=== PATIENT | female | born 1965 | race Caucasian/White ===

== ENCOUNTER 2019-03-31 05:36 | Emergency (ER) | payer OTHER ==
[2019-03-31] MEDS ORDERED: TETRACAINE 0.5% HCL 0.6ML DROPPER.BOTTLE OU ONE (06:15)
[2019-03-31] MEDS ORDERED: FLUORESCEIN NA 1 EA STRIP OU ONE (06:15)
[2019-03-31] MEDS ORDERED: ERYTHROMYCIN 0.5% OPHTHALMIC OINTMENT 3.5 GM TUBE OU ONE (06:15)
--- NOTE | 2019-03-31 06:15 | PDOC ---
History of Present Illness - General Chief Complaint: Eye Problem Stated Complaint: L EYE PAIN Time Seen by Provider: 03/31/19 06:11 History Source: Patient - History of Present Illness Initial Comments: 03/31/19 06:37 54 year old female woke up with pain to the left eye pain and tearing as per patient has been rubbing eyes. no vision changes PMHX: migraines; lasik surgery 2017 Past History - Past Medical History Allergies/Adverse Reactions: Allergies Allergy/AdvReac Type Severity Reaction Status Date / Time No Known Allergies Allergy Verified 03/31/19 06:22 Home Medications: Ambulatory Orders Erythromycin 0.5% Eye Ointment [Erythromycin 0.5% Eye Ointment -] 1 applic OS Q6H #2 tube 03/31/19 Review of Systems - Review of Systems Able to Perform ROS?: Yes Is the patient limited Wolof proficient: No Constitutional: No: Symptoms Reported, See HPI, Chills, Diaphoresis, Fever, Loss of Appetite, Malaise, Night Sweats, Weakness, Weight Stable, Unintentional Wgt. Loss, Unexplained wgt Loss, Other HEENTM: Yes: Eye Pain (left eye pain), Tearing. No: Blurred Vision, Double Vision, Cataracts *Physical Exam - Vital Signs 03/31/19 06:40 Last Vital Signs Temp Pulse Resp BP Pulse Ox 97.6 F 65 19 129/65 99 03/31/19 05:45 03/31/19 05:45 03/31/19 05:45 03/31/19 05:45 03/31/19 05:45 - Physical Exam General Appearance: Yes: Appropriately Dressed HEENT: positive: Other (left eye + fluorescein uptake at 6 0'clock position and pupils. PERRLA snellen 20/70 left 20/50 right 20/40 both) Medical Decision Making - Medical Decision Making 03/31/19 06:41 Corneal abrasion P: fluroscein tetracaine erythromycin *DC/Admit/Observation/Transfer Diagnosis at time of Disposition: Left corneal abrasion Qualifiers: Encounter type: initial encounter Qualified Code(s): S05.02XA - Injury of conjunctiva and corneal abrasion without foreign body, left eye, initial encounter - Discharge Dispostion Disposition: HOME - Prescriptions Prescriptions: Erythromycin 0.5% Eye Ointment [Erythromycin 0.5% Eye Ointment -] 1 applic OS Q6H #2 tube - Referrals Referrals: Hermes Prabhakar MD [Staff Physician] - 24 hours (call today) Anamaria Schulz MD [Staff Physician] - 24 hours (call today) Monster Holm MD [Staff Physician] - (call today for an appointment) - Patient Instructions Printed Discharge Instructions: DI for Corneal Abrasion Additional Instructions: apply a thin ribbon to left eye every 6 hours as prescribed. follow up with an eye doctor as soon as possible - Post Discharge Activity
--- NOTE | 2019-03-31 06:17 | PDOC ---
Medical Decision Making - Medical Decision Making 03/31/19 06:17 Patient seen by the advanced practice provider under my direct supervision. Ancillary testing reviewed as necessary. I agree with plan as outlined by the advanced practice provider. *DC/Admit/Observation/Transfer Diagnosis at time of Disposition: Left corneal abrasion Qualifiers: Encounter type: initial encounter Qualified Code(s): S05.02XA - Injury of conjunctiva and corneal abrasion without foreign body, left eye, initial encounter - Discharge Dispostion Disposition: HOME Condition at time of disposition: Fair - Prescriptions Prescriptions: Erythromycin 0.5% Eye Ointment [Erythromycin 0.5% Eye Ointment -] 1 applic OS Q6H #2 tube - Referrals Referrals: Hermes Prabhakar MD [Staff Physician] - 24 hours (call today) Monster Holm MD [Staff Physician] - (call today for an appointment) Anamaria Schulz MD [Staff Physician] - 24 hours (call today) - Patient Instructions Printed Discharge Instructions: DI for Corneal Abrasion Additional Instructions: apply a thin ribbon to left eye every 6 hours as prescribed. follow up with an eye doctor as soon as possible - Post Discharge Activity
[2019-03-31] MEDS ORDERED: FLUORESCEIN NA 1 EA STRIP ONE (06:18)
[2019-03-31] MEDS ORDERED: TETRACAINE 0.5% OPHTH SOLN 2 ML BOTTLE ONE (06:18)
[2019-03-31] MEDS ORDERED: ERYTHROMYCIN 0.5% OPHTHALMIC OINTMENT 3.5 GM TUBE ONE (06:20)
[2019-03-31 06:22] VITALS: BP 129/65; PULSE 65; TEMP 97.6; BMI 23.8
[2019-03-31] MEDS ORDERED: ACETAMINOPHEN 325 MG TABLET (FP) PO ONE (06:51)
[2019-03-31] MEDS ORDERED: ACETAMINOPHEN 325 MG TABLET (FP) ONE (06:54)
== END 2019-03-31 07:01 | disposition home or self-care (01) ==
LOC: JER 05:36
PROC: 4A07X0Z Measurement of Visual Acuity, External Approach (ICD-10-PCS; principal; 2019-03-31)
DX: S05.02XA Injury of conjunctiva and corneal abrasion without foreign body, left eye, initial encounter (principal); X58.XXXA Exposure to other specified factors, initial encounter; Y93.89 Activity, other specified; Y92.032 Bedroom in apartment as the place of occurrence of the external cause; Y99.8 Other external cause status
CPT/HCPCS: 99173; 99281-25

== ENCOUNTER 2020-08-21 08:55 | Emergency (ER) | payer OTHER ==
[2020-08-21] MEDS ORDERED: FLUORESCEIN NA 1 EA STRIP OS ONE (09:07)
[2020-08-21] MEDS ORDERED: TETRACAINE 0.5% HCL 0.6ML DROPPER.BOTTLE OS ONE (09:07)
[2020-08-21 09:25] VITALS: BP 141/58; PULSE 76; TEMP 98.4; BMI 25.0
== END 2020-08-21 11:08 | disposition home or self-care (01) ==
LOC: JERFT 08:55
DX: H16.002 Unspecified corneal ulcer, left eye (principal)
CPT/HCPCS: 99283-25

== ENCOUNTER 2020-08-22 02:52 | Emergency (ER) | payer OTHER ==
[2020-08-22 03:06] VITALS: BP 147/66; PULSE 67; TEMP 98.7; BMI 25.0
[2020-08-22] MEDS ORDERED: KETOROLAC TROMETHAMINE 30 MG/1 ML VIAL IM ONE (03:30)
[2020-08-22] MEDS ORDERED: KETOROLAC TROMETHAMINE 30 MG/1 ML VIAL ONE (03:36)
== END 2020-08-22 04:20 | disposition home or self-care (01) ==
LOC: JER 02:52
PROC: 3E0233Z Introduction of Anti-inflammatory into Muscle, Percutaneous Approach (ICD-10-PCS; principal; 2020-08-22)
DX: H16.002 Unspecified corneal ulcer, left eye (principal)
CPT/HCPCS: 99284-25

== ENCOUNTER 2020-11-22 14:30 | Emergency (ER) | payer OTHER ==
[2020-11-22 14:41] VITALS: BMI 28.8
[2020-11-22] MEDS ORDERED: FAMOTIDINE 20 MG TABLET PO ONE (14:58)
[2020-11-22] MEDS ORDERED: diphenhydrAMINE HCL 25 MG CAPSULE (FP) PO ONE ×2 (14:58→15:04)
[2020-11-22] MEDS ORDERED: predniSONE 20 MG TABLET (UD) PO ONE (14:59)
[2020-11-22] MEDS ORDERED: predniSONE 20 MG TABLET (UD) ONE (15:03)
[2020-11-22] MEDS ORDERED: FAMOTIDINE 20 MG TABLET ONE (15:04)
[2020-11-22 19:12] VITALS: BP 110/65; PULSE 72; TEMP 98.1
== END 2020-11-22 19:00 | disposition home or self-care (01) ==
LOC: JER 14:30
DX: T78.40XA Allergy, unspecified, initial encounter (principal)
CPT/HCPCS: 99283-25